=== PATIENT | female | born 1965 | race Caucasian/White ===

== ENCOUNTER 2021-12-23 11:40 | Inpatient (IN) | payer MEDICAID ==
[~2021-12-23] VITALS: Ht 162.6 cm; Wt 89.4 kg
[~2021-12-23 11:40] MED LIST: AMOX-494 PO; OMEP20CA14 PO
[2021-12-23] MEDS ORDERED: NITROGLYCERIN OINT 1GM/INCH UDPKT TD ONE (12:15)
[2021-12-23 12:54] LABS: CHLORIDE 101 mEq/L (98-107)
[2021-12-23 13:11] LABS: BASOPHILS % 0.7 % (0.0-2.0); EOSINOPHILS % 1.6 % (0.0-5.0); HEMATOCRIT. 40.1 % (36.0-48.0); HEMOGLOBIN. 13.5 g/dL (12.0-16.0); LYMPHOCYTES % 22.5 % (20.0-50.0); MEAN CORPUSCULAR HEMOGLOBIN 29.7 pg (28.0-32.0); MEAN CORPUSCULAR VOLUME 87.9 fL (81.0-99.0); MEAN PLATELET VOLUME 9.5 fl (7.4-10.4); MONOCYTES % 5.2 % (2.0-8.0); PLATELET 269 x1000/uL (130-400); RED BLOOD CELL COUNT 4.57 mill/uL (4.2-5.4); RED CELL DISTRIBUTION WIDTH 14.1 % (11.6-14.6)
[2021-12-23] MEDS ORDERED: CLONIDINE 0.1MG TABLET PO PRN (16:00)
[2021-12-23] MEDS ORDERED: ACETAMINOPHEN 325MG TABLET PO PRN ×2 (16:00)
[2021-12-23] MEDS ORDERED: NITROGLYCERIN 0.4MG TABLET SL SL PRN (16:00)
[2021-12-23] MEDS ORDERED: IPRATROPIUM/ALBUTEROL 0.5-3(2.5)MG/3ML NEB NEB PRN (16:00)
[2021-12-23] MEDS ORDERED: DOCUSATE SODIUM 100MG CAPSULE PO PRN (16:00)
[2021-12-23] MEDS ORDERED: MAGNESIUM/ALUMINUM HYDROXIDE/SIMETHICONE 30ML UDC PO PRN (16:00)
[2021-12-23] MEDS ORDERED: ONDANSETRON HCL 4MG/2ML INJ IV PRN (16:00)
[2021-12-23] MEDS ORDERED: NA PHOS,M-B/NA PHOS,DI-BA ENEMA 118ML PR PRN (16:00)
[2021-12-23] MEDS ORDERED: KETOROLAC 15MG/ML VIAL IV PRN (16:12)
[2021-12-23] MEDS: ENOXAPARIN 40MG/0.4ML SYR SUBCUT SCH (16:37)
[2021-12-23 19:24] LABS: FOLIC ACID (FOLATE) SERUM 10.4 ng/mL (>5.38)
[2021-12-23 20:20] VITALS: BP 124/64
[2021-12-23] MEDS: ZOLPIDEM TARTRATE 5MG TABLET PO PRN (22:48)
[2021-12-23] MEDS: FAMOTIDINE 20MG TABLET PO SCH (22:49)
[2021-12-23] MEDS: ATORVASTATIN CALCIUM 10MG TABLET PO SCH (22:49)
[2021-12-23] MEDS: GUAIFENESIN 200MG/10ML SUGAR FREE UDC PO PRN (22:49)
[2021-12-24] VITALS: BP 101/77
[2021-12-24 00:51] LABS: CREATINE KINASE 53 IU/L (26-192); CREATINE KINASE MB FRACTION < 1.0 ng/mL (0.5-3.6)
[2021-12-24] MEDS ORDERED: ASPI-1406 MT (01:40)
[2021-12-24] MEDS ORDERED: ATOR40TA70 MT (01:42)
[2021-12-24] MEDS ORDERED: LISI10TA26 MT (01:43)
[2021-12-24] MEDS ORDERED: MELA3TAB71 MT (01:44)
[2021-12-24] MEDS ORDERED: METO-396 PO (01:45)
[2021-12-24 04:00] VITALS: BP 100/45
[2021-12-24 06:34] LABS: BASOPHILS % 1.2 % (0.0-2.0); EOSINOPHILS % 2.3 % (0.0-5.0); HEMOGLOBIN. 12.9 g/dL (12.0-16.0); LYMPHOCYTES % 28.3 % (20.0-50.0); MEAN CORPUSCULAR HEMOGLOBIN 29.7 pg (28.0-32.0); MEAN CORPUSCULAR VOLUME 87.9 fL (81.0-99.0); MEAN PLATELET VOLUME 9.3 fl (7.4-10.4); NEUTROPHILS % 59.2 % (40.0-76.0); PLATELET 241 x1000/uL (130-400); RED BLOOD CELL COUNT 4.33 mill/uL (4.2-5.4); RED CELL DISTRIBUTION WIDTH 13.9 % (11.6-14.6)
[2021-12-24 07:00] LABS: CREATINE KINASE 62 IU/L (26-192); CREATINE KINASE MB FRACTION < 1.0 ng/mL (0.5-3.6)
[2021-12-24 07:17] LABS: CHLORIDE 105 mEq/L (98-107)
[2021-12-24 07:25] LABS: PHOSPHORUS 4.4 mg/dL (2.5-4.9)
[2021-12-24 08:23] VITALS: BP 107/69
[2021-12-24] MEDS: ENOXAPARIN 40MG/0.4ML SYR SUBCUT SCH (08:38)
[2021-12-24] MEDS: CLOPIDOGREL 75MG TABLET PO SCH (08:38)
[2021-12-24] MEDS: ASPIRIN 81MG EC TABLET PO SCH (08:38)
[2021-12-24] MEDS: FAMOTIDINE 20MG TABLET PO SCH ×2 (08:38→19:59)
[2021-12-24 11:56] VITALS: BP 105/52
[2021-12-24 16:18] VITALS: BP 141/84
[2021-12-24] MEDS: LIDOCAINE 5% PATCH TOP SCH (18:37)
[2021-12-24] MEDS: ATORVASTATIN CALCIUM 10MG TABLET PO SCH (19:59)
[2021-12-24 20:00] VITALS: BP 129/81
[2021-12-25] VITALS: BP 112/56
[2021-12-25] MEDS: GUAIFENESIN 200MG/10ML SUGAR FREE UDC PO PRN (00:07)
[2021-12-25] MEDS: ZOLPIDEM TARTRATE 5MG TABLET PO PRN (00:07)
[2021-12-25 04:00] VITALS: BP 111/58
[2021-12-25] MEDS ORDERED: SUCR1TAB30 MT (07:45)
[2021-12-25] MEDS ORDERED: OMEP20CA14 PO (07:45)
[2021-12-25 07:56] VITALS: BP 94/50
[2021-12-25 08:00] VITALS: BP 94/50
[2021-12-25 08:36] VITALS: BP 94/50
[2021-12-25] MEDS: FAMOTIDINE 20MG TABLET PO SCH (08:36)
[2021-12-25] MEDS: ASPIRIN 81MG EC TABLET PO SCH (08:36)
[2021-12-25] MEDS: CLOPIDOGREL 75MG TABLET PO SCH (08:36)
[2021-12-25] MEDS: LIDOCAINE 5% PATCH TOP SCH (08:36)
== END 2021-12-25 09:00 | disposition home or self-care (01) | DRG 203 ==
LOC: ER 11:40 → 8WST 14:47 → EDBEDREQTM 14:57 → EDBEDREQ 14:57 → ENRESERV 18:48
PROVIDERS: ADMIT Internal Medicine; ATTEND Internal Medicine
DX: M94.0 Chondrocostal junction syndrome [Tietze] (principal); I25.110 Atherosclerotic heart disease of native coronary artery with unstable angina pectoris; E78.00 Pure hypercholesterolemia, unspecified; K21.9 Gastro-esophageal reflux disease without esophagitis; I25.2 Old myocardial infarction; I10 Essential (primary) hypertension; Z95.5 Presence of coronary angioplasty implant and graft; Z87.891 Personal history of nicotine dependence; Z88.1 Allergy status to other antibiotic agents
CPT/HCPCS: 36415; 71045; 80053; 80061; 82550; 82553; 82607; 82746; 83036; 83540; 83550; 83735; 83880; 84100; 84443; 84484; 85025; 93005; 93306; 93970; J1650